=== PATIENT | female | born 2000 | race African-American/Black ===

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

== ENCOUNTER 2022-12-14 03:12 | Observation (INO) | payer MEDICAID ==
[~2022-12-14] VITALS: Ht 167.6 cm; Wt 132.9 kg
== END 2022-12-14 05:09 | disposition home or self-care (01) ==
LOC: LDRP 03:12
PROVIDERS: ADMIT Obstetrics & Gynecology; ATTEND Obstetrics & Gynecology
DX: O26.892 Other specified pregnancy related conditions, second trimester (principal); R10.9 Unspecified abdominal pain; O62.9 Abnormality of forces of labor, unspecified; Z3A.23 23 weeks gestation of pregnancy
CPT/HCPCS: 59025; 81002; 94760; G0378